=== PATIENT | male | born 1995 | race Caucasian/White ===

== ENCOUNTER 2019-01-10 07:38 | Outpatient (CLI) | payer OTHER | END 2019-01-10 07:41 | disposition home or self-care (01) | LOC: RAD 07:38 | DX: Z01.811 Encounter for preprocedural respiratory examination (principal) ==

== ENCOUNTER 2019-01-10 08:19 | Outpatient (CLI) | payer OTHER | END 2019-01-10 08:36 | disposition home or self-care (01) | LOC: LAB 08:19 | DX: M25.119 Fistula, unspecified shoulder (principal); R79.1 Abnormal coagulation profile; N39.0 Urinary tract infection, site not specified ==

== ENCOUNTER 2019-01-10 10:59 | Outpatient (CLI) | payer OTHER | END 2019-01-10 17:00 | disposition home or self-care (01) | LOC: MRI 10:59 | DX: M25.111 Fistula, right shoulder (principal) | CPT/HCPCS: 73222 ==

== ENCOUNTER → 2021-03-19 09:46 | Outpatient (CLI) | payer OTHER | END | disposition home or self-care (01) | LOC: LAB 09:46 | DX: R06.02 Shortness of breath (principal); R05 Cough; Z03.818 Encounter for observation for suspected exposure to other biological agents ruled out ==